=== PATIENT | female | born 1990 | race American Indian/Alaskan Native ===

== ENCOUNTER 2019-05-28 10:26 | Outpatient (CLI) | payer OTHER ==
--- NOTE | 2019-05-28 14:11 | Mammography Report ---
BILATERAL DIGITAL DIAGNOSTIC MAMMOGRAM WITH CAD 05/28/2019 BILATERAL COMPLETE BREAST ULTRASOUND INDICATION: 28-year-old with history of lymphoma. A recent CT chest described bilateral breast masses . TECHNIQUE: Digital bilateral mammographic imaging was performed. Complete ultrasound of all four (4) quadrants was performed. This examination was interpreted with the benefit of Computer-Aided Detecti on (CAD) analysis. COMPAR[facility] FINDINGS: Breast Density: The breasts are heterogeneously dense, which may obscure small masses. MAMMOGRAPHIC FINDINGS: There is no evidence of dominant mass, suspicious calcifications or architectu ral distortion in either breast. ULTRASOUND FINDINGS: Complete sonographic evaluation of all 4 quadrants and retroareolar region was p erformed. Ultrasound of the right breast demonstrated a benign cyst at 10:00 9 cm from the nipple m easuring 6 x 3 x 5 mm and a benign cyst at 8:00 4 cm from the nipple measuring 10 x 5 x 8 mm. An oval solid shadowing mass at 7:00 5 cm from the nipple measures 5 x 4 x 3 mm. Margins are indistinct. It produces a dense shadow and there is no calcification on the mammogram to explain the shadowing. Ultr asound of the left breast demonstrated multiple complex cysts versus solid masses. Such a lesion at 1 1:30 o'clock 7 cm from the nipple measures 9 x 8 x 5 mm. A probable solid mass at 12:30 o'clock 8 cm from the nipple measures 1.6 x 0.8 x 1.5 cm. A cyst versus solid mass at 1:00 6 cm from the nipple me asures 1.5 x 1.4 x 1.0 cm. The margins are somewhat irregular and indistinct. A cyst versus solid mas s at 2:00 6 cm from the nipple measures 1.5 x 0.8 x 1.3 cm. A probable benign cyst at 5:00 5 cm from the nipple measures 1.4 x 0.9 x 1.4 cm. A solid mass versus complex cyst at 5:00 2 cm from the nipple measures 1.6 x 0.8 x 1.4 cm. A complex cyst versus solid mass at 6:00 1 cm from the nipple measures 1.3 x 0.6 x 0.7 cm. Additional similar lesions at 8:00 2 cm from the nipple and 11:00 7 cm from the n ipple IMPRESSION: 1. A suspicious 5 mm shadowing mass of the right breast at 7:00 5 cm from the nipple. Recommend ultra sound-guided needle biopsy to exclude malignancy. 2. 2 right benign cysts at 10:00 and 8:00. 3. Numerous complex cyst versus solid masses of the left breast. Recommend ultrasound-guided cyst asp iration/biopsy of the most suspicious lesion of the left breast at 1:00 6 cm from the nipple. Recomme nd 6 month follow-up left breast ultrasound to reassess the other lesions in the left breast. Follow up recommendation: Biopsy BI-RADS Category 4: Suspicious for Malignancy. A "normal" or negative report should not discourage follow up or biopsy of a clinically significant f inding. A written summary of these findings will be mailed to the patient. The patient will be entered into a mammography reporting system which will generate a reminder letter for the patient's next appointmen t at the appropriate interval. According to the [employer], yearly mammograms are recommended starting at age 40 and continuing as long as a woman is in good health. Breast MRI is recommended for women with an amisha roximately 20-25% or greater lifetime risk of breast cancer, including women with a strong family his tory of breast or ovarian cancer and women who have been treated for Hodgkin's disease. Signer Name: Jonny Lay MD Signed: 05/28/2019 2:07 PM Workstation Name: [id number]
== END 2019-05-28 10:27 | disposition home or self-care (01) ==
LOC: SPVWC 10:26
PROVIDERS: ATTEND Surgery
DX: N60.01 Solitary cyst of right breast (principal)
CPT/HCPCS: 77066

== ENCOUNTER 2019-06-16 09:32 | Outpatient (CLI) | payer OTHER ==
--- NOTE | 2019-06-16 12:06 | Ultrasound Report ---
ULTRASOUND-GUIDED NEEDLE CORE BIOPSY LEFT BREAST WITH CLIP PLACEMENT CLINICAL: A 1.4 x 1.3 x 0.9 cm complex cyst versus solid mass at 1:00 6 cm from the nipple. FINDINGS: The procedure was explained to the patient and informed consent was obtained. Ultrasound demonstrated the previously identified lesion. I marked the breast with a felt tip marker and a timeout was called. The skin was prepped with Chloro -Prep and anesthetized with 1% lidocaine. I attempted to aspirate fluid from the lesion with an 18-gauge needle but was unsuccessful in obtaini ng fluid. Needle core biopsy was then performed through small dermatotomy using ultrasound guidance, 2% lidocaine with epinephrine for deep anesthesia and a 14-gauge Achieve biopsy device. 4 cores were obtained and placed in formalin. A clip was deployed within the mass. The patient tolerated the procedure well and there were no apparent complications. Hemostasis was ach ieved with minimal effort and a sterile dressing was applied. A post procedure mammogram was not performed since she is only 28 and her 05/28/2019 mammogram showed increased breast density with no identifiable mass. She left the department in good condition and was given instructions for wound care and follow-up. IMPRESSION: Uncomplicated ultrasound guided needle core biopsy with clip placement left breast. Signer Name: Jonny Lay MD Signed: 06/16/2019 12:01 PM Workstation Name: [id number]
== END 2019-06-16 09:33 | disposition home or self-care (01) ==
LOC: SPVWC 09:32
PROVIDERS: ATTEND Surgery
DX: N63.21 Unspecified lump in the left breast, upper outer quadrant (principal); N60.02 Solitary cyst of left breast
CPT/HCPCS: 88305

== ENCOUNTER 2019-06-19 08:13 | Outpatient (CLI) | payer OTHER ==
--- NOTE | 2019-06-19 11:15 | Ultrasound Report ---
ULTRASOUND-GUIDED RIGHT BREAST BIOPSY WITH MARKER HISTORY: Right breast mass. COMPARISON: 06/16/2019, 05/28/2019. CONSENT: Technique, risks and alternatives were discussed with the patient and informed written conse nt obtained. PROCEDURE: The mass at the 7:00 position, 5 cm from the nipple in the right breast was located sonographically. The overlying skin was cleansed with Betadine. The skin and superficial soft tissues were anesthetiz ed with a small amount of buffered 1% lidocaine. The deeper soft tissues were anesthetized with buff ered 2% lidocaine with epinephrine. A small dermatotomy was created through which a 14-gauge spring- loaded core biopsy needle was advanced. Under real time sonographic guidance, a total of 4 core specimen samples were acquired to submit to s urgical pathology for analysis. At the conclusion of the procedure, a SecurMark biopsy marker was dep loyed within the residual mass. Manual pressure was applied at the biopsy site to achieve hemostasis. The incision margins were appro ximated with Steri-Strips. A post procedure mammogram was not formed given the young age of the patie nt. Post procedure care instructions were administered in both verbal and written forms. The patient voic ed understanding and left the breast center in stable, satisfactory condition. IMPRESSION Technically successful ultrasound-guided right breast biopsy with marker placement. Patient is schedu led to follow up with Dr. Oglesby to review biopsy results in the near future. Signer Name: Chano Rios MD Signed: 06/19/2019 11:11 AM Workstation Name: [id number]
== END 2019-06-19 08:14 | disposition home or self-care (01) ==
LOC: SPVWC 08:13
PROVIDERS: ATTEND Surgery
DX: N63.13 Unspecified lump in the right breast, lower outer quadrant (principal); N64.89 Other specified disorders of breast
CPT/HCPCS: 88305

== ENCOUNTER 2019-12-23 07:59 | Outpatient (CLI) | payer OTHER ==
--- NOTE | 2019-12-23 11:56 | Mammography Report ---
BILATERAL DIGITAL DIAGNOSTIC MAMMOGRAM WITH CAD -- 12/23/2019 BILATERAL COMPLETE BREAST ULTRASOUND INDICATION: Patient presents for six-month follow-up following bilateral benign breast biopsies. TECHNIQUE: Digital bilateral mammographic imaging was performed. Complete ultrasound of all four (4) quadrants was performed. This examination was interpreted with the benefit of Computer-Aided Detecti on (CAD) analysis. COMPARISON: Prior mammogram and bilateral breast ultrasound 05/28/2019 FINDINGS: Breast Density: The breasts are extremely dense, which lowers the sensitivity of mammography. MAMMOGRAPHIC FINDINGS: There is a new biopsy clip seen in the posterior 6:00 position of the right br east, and a new biopsy clip associated with an obscured oval mass seen in the 1:00 position of the le ft breast, posterior depth. Additional obscured oval masses in both breasts appear not significantly changed from prior mammogram, better further evaluated by bilateral ultrasound given the extremely de nse breast tissue. ULTRASOUND FINDINGS: Complete sonographic evaluation of all 4 quadrants and retroareolar region was p erformed. Right breast: A biopsy clip is seen in the right breast 7:00 position located 5 cm from the nipple at site of prior benign ultrasound-guided biopsy. The previously seen irregular hypoechoic mass in this region is no longer appreciated. There is a stable benign cyst in the right breast 8:00 position loc ated 4 cm from the nipple measuring up to 10 mm. No suspicious solid lesion identified in the right b reast. Left breast: The previously biopsied oval circumscribed hypoechoic mass in the left breast 12:30 posi tion located 8 cm from the nipple currently measures up to 1.4 x 1.4 x 0.9 cm, previously 1.5 x 1.6 x 0.8 and ureter. A biopsy clip is seen within this mass. Additional left breast masses versus complic ated cysts are also stable including: -Left breast 1:00 position located 6 cm from the nipple, currently measuring up to 1.4 x 1.6 cm, prev iously 1.5 x 1.3 cm -Left breast 5:00 position located 5 cm from the nipple, currently measuring up to 1.5 x 1.4 cm, prev iously 1.4 x 1.4 cm -Left breast 6:00 position located 1 cm from the nipple, currently measuring up to 1.4 x 0.9 cm, prev iously 1.3 x 0.7 cm -Left breast 8:00 position located 2 cm from the nipple, currently measuring up to 9 x 8 mm, previous ly 8 x 8 mm -Left breast 10:00 position located 9 cm from the nipple, currently measuring up to 1.4 x 0.9 cm, pre viously 1.4 x 1.0 cm IMPRESSION: 1. Stable biopsy clip in the right breast. No suspicious mammographic or sonographic abnormality iden tified in the right breast. 2. Stable mass with associated biopsy clip in the left breast. Additional benign-appearing solid mass es versus complicated cyst in the left breast are unchanged. A left breast ultrasound could be perfor med in 6 months to ensure ongoing stability. Follow up recommendation: Short term follow up in 6 months. BI-RADS Category 3: Probably Benign. Followup in 6 months. A "normal" or negative report should not discourage follow up or biopsy of a clinically significant f inding. A written summary of these findings will be mailed to the patient. The patient will be entered into a mammography reporting system which will generate a reminder letter for the patient's next appointmen t at the appropriate interval. According to the [employer], yearly mammograms are recommended starting at age 40 and continuing as long as a woman is in good health. Breast MRI is recommended for women with an amisha roximately 20-25% or greater lifetime risk of breast cancer, including women with a strong family his tory of breast or ovarian cancer and women who have been treated for Hodgkin's disease. Signer Name: Rain Kunz MD Signed: 12/23/2019 11:51 AM Workstation Name: [id number]
== END 2019-12-23 08:00 | disposition home or self-care (01) ==
LOC: SPVWC 07:59
PROVIDERS: ATTEND Surgery
DX: N63.21 Unspecified lump in the left breast, upper outer quadrant (principal); N60.01 Solitary cyst of right breast; N60.02 Solitary cyst of left breast; Z98.890 Other specified postprocedural states
CPT/HCPCS: 77066

== ENCOUNTER 2020-06-22 09:51 | Outpatient (CLI) | payer OTHER ==
--- NOTE | 2020-06-22 11:38 | Ultrasound Report ---
BILATERAL DIGITAL DIAGNOSTIC MAMMOGRAM WITH CAD , 06/22/2020 LEFT COMPLETE BREAST ULTRASOUND CLINICAL INFORMATION / INDICATION: Follow-up left breast masses, FIBROADENOSIS OF BILATERAL BREAST TECHNIQUE: Digital bilateral mammographic imaging was performed. Complete ultrasound of all four (4) quadrants was performed. This examination was interpreted with the benefit of Computer-Aided Detectio n (CAD) analysis. COMPARISON: Prior mammogram 05/28/2019, 12/23/2019, and previous ultrasound 12/23/2019 FINDINGS: Breast Density: The breasts are extremely dense, which lowers the sensitivity of mammography. MAMMOGRAPHIC FINDINGS: No new dominant mass, suspicious calcifications, or architectural distortion i n either breast. There is been interval bilateral breast biopsy. There is now a clip in the 6:00 posi tion of the right breast and 12-1:00 position of the left breast. There remains nodularity in the inf erior left breast seen predominantly on the MLO view. Overall the appearance of the bilateral mammogr am has not changed. ULTRASOUND FINDINGS: Complete sonographic evaluation of all 4 quadrants and retroareolar region was p erformed. In the 12-1:00 position, 8 cm from nipple, there remains a 16 cm oval solid mass which now contains v isible biopsy clip. In the 1:00 position 5 cm from nipple, 13 mm oval well-circumscribed mass is again noted. In the 5:00 position, 5 cm from nipple, well-circumscribed oval hypoechoic 14 mm mass is present. In the 6:00 position, 1 cm from nipple, 12 mm oval well-circumscribed hypoechoic mass noted. In the 8:00 position, 2 cm from nipple, 7 mm oval complicated hypoechoic mass identified. In the 10:00 position, 9 cm from nipple, oval well-circumscribed 15 mm mass noted. IMPRESSION: Probably benign findings. Mammographic imaging is stable. Multiple mostly benign-appearin g masses throughout the left breast appear grossly unchanged from prior ultrasound of 12/23/2019. I wo uld recommend one additional 6 month follow-up left breast ultrasound to ensure stability of these fi ndings for least one year.. Follow up recommendation: 6 month follow-up left breast ultrasound. BI-RADS Category 3: Probably Benign. Followup in 6 months. A "normal" or negative report should not discourage follow up or biopsy of a clinically significant f inding. A written summary of these findings will be mailed to the patient. The patient will be entered into a mammography reporting system which will generate a reminder letter for the patient's next appointmen t at the appropriate interval. According to the [employer], yearly mammograms are recommended starting at age 40 and continuing as long as a woman is in good health. Breast MRI is recommended for women with an amisha roximately 20-25% or greater lifetime risk of breast cancer, including women with a strong family his tory of breast or ovarian cancer and women who have been treated for Hodgkin's disease. Signer Name: Radha Warren MD Signed: 06/22/2020 11:33 AM Workstation Name: [id number]
== END 2020-06-22 09:52 | disposition home or self-care (01) ==
LOC: SPVWC 09:51
PROVIDERS: ATTEND Surgery
DX: N63.22 Unspecified lump in the left breast, upper inner quadrant (principal); N63.21 Unspecified lump in the left breast, upper outer quadrant; N60.21 Fibroadenosis of right breast; N60.22 Fibroadenosis of left breast; N63.23 Unspecified lump in the left breast, lower outer quadrant
CPT/HCPCS: 77066